=== PATIENT | male | born 2000 | race Caucasian/White ===

== ENCOUNTER 2021-09-21 07:09 | Emergency (ER) | payer BC ==
[2021-09-21] MEDS ORDERED: Ibuprofen 600 MG Tab PO ONE (07:22)
== END 2021-09-21 09:16 | disposition home or self-care (01) ==
LOC: MW.ED 07:09
DX: S20.212A Contusion of left front wall of thorax, initial encounter (principal); S89.92XA Unspecified injury of left lower leg, initial encounter; W01.10XA Fall on same level from slipping, tripping and stumbling with subsequent striking against unspecified object, initial encounter
CPT/HCPCS: 71101; 73562; 99283; A9270

== ENCOUNTER 2022-03-02 19:12 | Emergency (ER) | payer BC ==
[2022-03-02] MEDS ORDERED: diphenhydrAMINE 50 MG/ML SDV IVPUSH ONE (19:21)
[2022-03-02] MEDS ORDERED: methylPREDNISolone Sodium Succinate 125 MG/2 ML SDV IVPUSH ONE (19:21)
[2022-03-02] MEDS ORDERED: Sodium Chloride 0.9% 1,000 ML IV ONE (19:21)
[2022-03-02] MEDS ORDERED: Famotidine 20 MG/2 ML SDV IVPUSH ONE (19:21)
== END 2022-03-02 21:12 | disposition home or self-care (01) ==
LOC: MW.ED 19:12
DX: L50.0 Allergic urticaria (principal)
CPT/HCPCS: 96361; 96374; 96375; 99284; J1200; J2930; J3490; J7030